=== PATIENT | female | born 1985 | race Caucasian/White ===

== ENCOUNTER 2023-05-26 10:26 | Day surgery (SDC) | payer BC ==
[2023-05-26 10:35] LABS: Specific Gravity 1.022 (1.005-1.030)
[2023-05-26 10:51] LABS: Potassium 4.4 mEq/L (3.5-5.1)
[2023-05-26] MEDS ORDERED: Ringers Lactate 1,000 ML IV ONE (10:58)
[2023-05-26] MEDS: CEFAZOLIN SODIUM 2 GM/VIAL ONE ×3 (12:08→13:19)
[2023-05-26] MEDS: BUPIVACAINE 0.25% PF 30 ML VIAL ONE ×3 (12:08→13:24)
[2023-05-26] MEDS ORDERED: SCOPOLAMINE HYDROBROMIDE PATCH TD ONE (12:38)
[2023-05-26] MEDS ORDERED: MIDAZOLAM HCL 2 MG/2 ML INJ ONE (13:06)
[2023-05-26] MEDS ORDERED: propofoL 200 MG/20 ML VIAL IV ONE (13:07)
[2023-05-26] MEDS ORDERED: ROCURONIUM 50 MG/5 ML VIAL IV ONE (13:07)
[2023-05-26] MEDS ORDERED: LIDOCAINE 2% MPF 5 ML VIAL ONE (13:07)
[2023-05-26] MEDS ORDERED: ONDANSETRON 4 MG/2 ML VIAL ONE ×2 (13:07→13:20)
[2023-05-26] MEDS ORDERED: FENTANYL CITR 100 MCG/2 ML ONE (13:07)
[2023-05-26] MEDS ORDERED: HYDROMORPHONE HCL 2 MG/ML inj ONE (13:08)
[2023-05-26] MEDS ORDERED: dexAMETHasone 10 MG/ML VIAL ONE (13:20)
[2023-05-26] MEDS ORDERED: NEOSTIGMINE 1 MG/ML -10 ML VIAL ONE (14:05)
[2023-05-26] MEDS ORDERED: METOCLOPRAMIDE 10 MG/2mL INJ ONE (14:05)
[2023-05-26] MEDS ORDERED: GLYCOPYRROLATE 0.2 MG/ML SYR ONE (14:05)
[2023-05-26] MEDS ORDERED: KETOROLAC 30 MG/ML INJ ONE (14:05)
--- NOTE | 2023-05-26 14:12 | P.OP ---
Preoperative diagnosis: Incarcerated Umbilical Hernia Postoperative diagnosis: Incarcerated Umbilical Hernia Primary procedure: Laparoscopic Umbilical Hernia Repair with mesh Anesthesia: GETA + Local Estimated blood loss: <5cc Specimen: None Findings: Incarcerated omentum containing ~2.5cm umbilical hernia Complications: None Implants: Bard Ventralite ST 11.4cm Round mesh, Sorbafix x 45 tacks Transferred to: Recovery Room Condition: Good
[2023-05-26] MEDS: HYDROMORPHONE HCL 1 MG/ML INJ ONE ×2 (14:31→14:45)
[2023-05-26 15:50] VITALS: BP 159/86; TEMP 98.3
[2023-05-26] MEDS ORDERED: HYDROCODONE/APAP 7.5/325 MG TAB ONE (16:00)
--- NOTE | 2023-05-26 16:35 | OP ---
Date of Procedure: 05/26/2023 Surgeon: Travis Apodaca MD, Preoperative Diagnosis: Incarcerated umbilical hernia. Postoperative Diagnosis: Incarcerated umbilical hernia. Procedure Performed: Laparoscopic umbilical hernia repair with mesh. Anesthesia: General endotracheal plus local with 0.25% Marcaine. Estimated Blood Loss: Less than 5 cc. Specimen: None. Findings: Incarcerated omentum containing 2.5 cm umbilical hernia. Complication: None. Implants: Bard Ventralight ST mesh with Echo Positioning System, 11.4 cm round mesh utilized, SorbaF ix absorbable fixation tacks, x45 tacks utilized. Disposition: Patient transferred to recovery room in good condition. Procedure In Detail: After informed consent was obtained, patient was brought to the operating room, prepped and draped in the usual sterile fashion after adequate anesthesia was achieved. I made an i ncision in the left upper quadrant down to the subcutaneous tissues. A 5 mm 0-degree optical trocar was introduced in the abdomen without incident or complication. Insufflation was obtained to 15 mmHg at this time. There was no injury to vital structures upon entry to the abdomen. The insufflation was maintained to 15 mmHg and the area was visualized. I saw and inspected the abdominal wall at thi s point and noted an incarcerated omentum containing umbilical hernia approximately 2.5 cm in size. I then placed an additional trocar in the left mid abdomen. This was similarly anesthetized and scotty ply incised. A 12 mm trocar was placed under direct visualization without incident or complication. I then proceeded to use the LigaSure device to remove the omentum from the anterior abdominal wall a nd from the hernia sac and contents using the LigaSure device. After the hernia contents were reduce d to their normal anatomic position, no hemostatic measures were required. I swept back all the prep eritoneal fat using LigaSure both cranially and caudally at this point to allow for appropriate b[place] ng zone. I then brought in the Endo Stitch with an 0 V-Loc suture and secured and sutured the hernia sac in a running fashion, imbricating the hernia sac. At this point, good apposition of tissue was appreciated. I then deployed a 11.4 cm Bard Ventralight mesh using the Echo Positioning System throu gh the 12 mm trocar site and centrally positioned it in the periumbilical position. I then deployed the balloon and secured it to the anterior abdominal wall using SorbaFix absorbable fixation tacks. I then removed the balloon deployment system, found it to be intact on the back table and secured the mesh to the anterior bowel wall using a total of 45 SorbaFix absorbable fixation tacks. At this poi nt, there were no hemostatic measures were required and the mesh was in good apposition to the abdomi nal wall. I then closed the 12 mm trocar site using a Adolph-Ana Lilia suture passer with 0 Vicryl in interrupted fashion with good approximation of tissues. The abdomen was completely desufflated unde r direct visualization without incident or complication. All skin edges were then copiously irrigate d and closed with a 4-0 Monocryl in a running fashion. Dermabond was placed over top. The patient t olerated the procedure without incident or complication, transferred to PACU in good condition. All counts were correct at the end of the case. MEHREEN/NITHIN Voice ID: [id number] Report ID: [id number]
[2023-05-26 16:51] VITALS: O2SAT 95
--- NOTE | 2023-05-27 13:23 | EKG ---
Test Date: 2023-05-26 Test Time: 11:17:24 [employer] Clerk: BASSEM MEASUREMENT RESULTS: Intervals: Rate: 73 [place]: 176 QRSD: 94 QT: 396 QTc: 436 [place]: P: 66 [place]: 176 QRS: 13 T: 75 INTERPRETIVE STATEMENTS: Normal sinus rhythm Normal ECG No previous ECG available for comparison Electronically Signed On 05-27-23 13:20:02 [facility] by Irwin Vicente
== END 2023-05-26 16:47 | disposition home or self-care (01) ==
LOC: OR 10:26
PROVIDERS: ATTEND Surgery
PROC: 0WUF4JZ Supplement Abdominal Wall with Synthetic Substitute, Percutaneous Endoscopic Approach (ICD-10-PCS; principal; 2023-05-26 12:30)
DX: K42.0 Umbilical hernia with obstruction, without gangrene (principal); I10 Essential (primary) hypertension
CPT/HCPCS: 93005; 80048; 36415; 81025; 49592; J2704; J2710; J2765; J2001; J2250; J1170 ×2; J3010; J1100; J2405 ×2; J7120; C1781